=== PATIENT | female | born 1990 | race Caucasian/White ===

== ENCOUNTER 2021-03-03 09:09 | Emergency (ER) | payer OTHER, SELFPAY ==
[2021-03-03 09:22] VITALS: BP 131/68; PULSE 69; RESP 16; TEMP 36.3; O2SAT 99
--- NOTE | 2021-03-03 10:18 | ED.URI ---
HPI - URI/Sore Throat General Chief Complaint: Upper Respiratory Infection Stated Complaint: sore throat Time Seen by Provider: 03/03/21 10:18 Source: patient Mode of arrival: ambulatory Limitations: no limitations History of Present Illness HPI Narrative: Royer Mazariegos is a 31-year-old female who comes to [facility] with a sore throat that started on Sunday-states that her ears and throat hurt when ibuprofen wears off and has been taking [id number] Related Data Home Medications Medication Instructions Recorded Confirmed bupropion HCl 150 mg PO DAILY 03/03/21 03/03/21 cetirizine 10 mg PO DAILY 03/03/21 03/03/21 norethindrone (contraceptive) 0.35 mg PO DAILY 03/03/21 03/03/21 venlafaxine 75 mg PO DAILY 03/03/21 03/03/21 Allergies Allergy/AdvReac Type Severity Reaction Status Date / Time amoxicillin Allergy Unknown Other Verified 03/03/21 09:38 Penicillins Allergy Unknown Other Verified 03/03/21 09:38 Review of Systems Review of Systems: Narrative: CONSTITUTIONAL: Denies fever, chills, sweats. EYES: Denies visual changes, redness, discharge. ENT: Denies rhinorrhea, has congestion, has sore throat, bilateral otalgia. CARDIOVASCULAR: Denies chest pain, palpitations, edema. RESPIRATORY: Denies dyspnea, wheezing, cough GASTROINTESTINAL: Denies abdominal pain, nausea, vomiting, diarrhea. GENITOURINARY: Denies dysuria, hematuria, abnormal discharge SKIN: Denies rash or itching. NEUROLOGIC: Denies numbness, or focal weakness. PSYCHIATRIC: Denies anxiety or depression. PMFSH Past Medical History Medical History No acute medical problems Family History Family History Other Hypertension Social History Social History (Updated 03/03/21 @ 10:24 by Mary Ellen Summers CNP) Smoking status: Never smoker Alcohol intake: current Comments At time of signature, I agree with nursing past medical, surgical, social and family history. There is no relevant family history pertinent to the presenting complaint. Exam Narrative: Exam Narrative: GENERAL: This is a well-nourished, well-developed patient, in mild distress. HEAD: normocephalic, atraumatic. EYES: Sclera clear/white. Vision is grossly intact. EARS: External ears normal, auditory canals erythema and without drainage, TMs normal without perforation. Hearing grossly intact. NOSE: External nose normal without nasal discharge, nares without redness, no rhinorrhea. THROAT: Mucous membranes moist, posterior pharynx erythema NECK: Neck supple, non-tender CARDIOVASCULAR: Regular rate and rhythm without murmurs, gallops, or rubs. RESPIRATORY: Clear to auscultation. Breath sounds equal bilaterally. No wheezes, rales, or rhonchi. GASTROINTESTINAL: Abdomen soft, non-tender, SKIN: warm, intact with no suspicious lesions or rash, good texture and turgor. NEURO: awake, alert, and oriented to person, place and time. There were no obvious focal neurologic abnormalities. Steady gait EXTREMITIES: Normal range of motion. BACK: Nontender without deformity Course Course Emergency Course: Comes to [facility] with complaints of sore throat and bilateral ear pain and using ibuprofen [id number] Strep test negative Cefdinir 3 mg every 12 x10 days prednisone 40 mg x 5 days Vital Signs Vital signs: Vital Signs Temperature 97.3 F L 03/03/21 09:22 Pulse Rate 69 03/03/21 09:22 Respiratory Rate 16 03/03/21 09:22 Blood Pressure 131/68 03/03/21 09:22 Pulse Oximetry 99 03/03/21 09:22 Temperature 97.3 F L 03/03/21 09:22 Pulse Rate 69 03/03/21 09:22 Respiratory Rate 16 03/03/21 09:22 Blood Pressure 131/68 03/03/21 09:22 Pulse Oximetry 99 03/03/21 09:22 MDM - URI/Sore Throat Differential Diagnosis Differential diagnosis: Likely upper respiratory infection, otitis media, sinusitis, bronchitis, influenza and pharyngitis Lab Data Labs
== END 2021-03-03 10:30 | disposition home or self-care (01) ==
PROVIDERS: Emergency Provider Nurse Practitioner; PCP Physician Assistant
DX: J02.9 Acute pharyngitis, unspecified (principal); H66.003 Acute suppurative otitis media without spontaneous rupture of ear drum, bilateral; F41.9 Anxiety disorder, unspecified; F32.9 Major depressive disorder, single episode, unspecified
CPT/HCPCS: 87081; 87880; 99213; G0463

== ENCOUNTER 2023-07-13 08:52 | Emergency (ER) | payer OTHER, MEDICAID, SELFPAY ==
[2023-07-13 09:03] VITALS: BP 133/66; PULSE 107; RESP 16; TEMP 36.6; O2SAT 99
--- NOTE | 2023-07-13 09:11 | ED.URI ---
HPI - URI/Sore Throat General Chief Complaint: Upper Respiratory Infection Stated Complaint: Sore Throat/Heavy Chest/Ear Pain Time Seen by Provider: 07/13/23 09:05 Source: patient Mode of arrival: ambulatory Limitations: no limitations History of Present Illness HPI Narrative: Royer is a 33-year-old female patient presenting to the clinic today with complaints of a sore throat chest tightness, ear pain, sinus pressure, and nasal congestion. She reports symptoms have been going on for approximately 2 weeks. States she is 28 weeks . Has been taking Sudafed for symptoms and this has not helped very much. Is unable to get into her per biters office until next week. MD elicited complaint: cough, sore throat, nasal congestion and other (Chest tightness, ear pain, sinus pressure) Related Data Allergies Allergy/AdvReac Type Severity Reaction Status Date / Time amoxicillin Allergy Unknown Other Verified 07/13/23 09:14 Penicillins Allergy Unknown Other Verified 07/13/23 09:14 Review of Systems Review of Systems: Pertinent positives per HPI. Patient denies any fever, chills, rash, headache, visual changes, dizziness, shortness of breath, chest pain, palpitations, nausea, vomiting, diarrhea, constipation, abdominal pain, or any urinary issues. [facility] Past Medical History Medical History No acute medical problems Family History Family History Other Hypertension Social History Social History Smoking status: Never smoker Alcohol intake: current Comments At the time of my signature, I reviewed and agree with the nursing past medical, surgical, social, and family history. There is no relevant family history pertinent to the patient complaint. Exam Narrative: General: Well-developed, , in no apparent distress Head: Normocephalic, atraumatic Eyes: Pupils equally round and reactive to light bilaterally, EOM intact, sclera and conjunctive clear, no discharge, lids normal Ears: TMs intact and congested, ear canals clear, no drainage, grossly hearing normal. Nose: Nares patent, green nasal discharge, moderate inflammation, no sinus tenderness. Mouth: Oral pharynx without lesions or masses, good dentition, MMM. Postnasal drip Neck: Supple, trachea midline, no enlargement of anterior or posterior cervical nodes, no thyroid masses or goiter palpable. Cardio: Regular rate and rhythm, s1 and s2 normal, no murmur appreciated. Resp: Clear to auscultation bilaterally, no rhonchi, rales, wheezing or rubs Course Course Emergency Course: Portions of this record may have been created with voice recognition software. Level of Care: Express Care Visit Vital Signs Vital signs: Vital Signs Temperature 36.6 C 07/13/23 09:03 Pulse Rate 107 H 07/13/23 09:03 Respiratory Rate 16 07/13/23 09:03 Blood Pressure 133/66 07/13/23 09:03 Pulse Oximetry 99 07/13/23 09:03 Oxygen Delivery Room Air 07/13/23 09:03 Temperature 36.6 C 07/13/23 09:03 Pulse Rate 107 H 07/13/23 09:03 Respiratory Rate 16 07/13/23 09:03 Blood Pressure 133/66 07/13/23 09:03 Pulse Oximetry 99 07/13/23 09:03 Oxygen Delivery Room Air 07/13/23 09:03 Vital signs reviewed MDM - URI/Sore Throat MDM Narrative Medical decision making narrative: At the time of visit patient is resting comfortably on exam table. I suspect patient has acute bacterial rhinosinusitis. Patient is 28 weeks . Will send in prescription for cefdinir and she has a penicillin allergy. Supportive measures were discussed with the patient she voiced understanding discharge instructions and agrees to treatment plan. Return precautions were reviewed. Recommend follow-up with her PCP next week Differential Diagnosis Differential diagnosis: Likely upper respiratory
== END 2023-07-13 09:20 | disposition home or self-care (01) ==
PROVIDERS: Emergency Provider Nurse Practitioner Family
DX: O99.513 Diseases of the respiratory system complicating pregnancy, third trimester (principal); Z3A.28 28 weeks gestation of pregnancy; J01.90 Acute sinusitis, unspecified
CPT/HCPCS: 99213; G0463

== ENCOUNTER 2024-05-11 14:27 | Emergency (ER) | payer OTHER, MEDICAID, SELFPAY ==
[2024-05-11 14:34] VITALS: BP 135/85; PULSE 102; RESP 16; TEMP 36.6; O2SAT 100
--- NOTE | 2024-05-11 15:01 | ED.URI ---
HPI - URI/Sore Throat General Chief Complaint: Upper Respiratory Infection Stated Complaint: Chest Congestion/Ear Pain/Neck Pain Time Seen by Provider: 05/11/24 14:48 Source: patient Mode of arrival: ambulatory Limitations: no limitations History of Present Illness HPI Narrative: 34 year old female who presents to [facility] care with complaints of productive cough,, body aches,nasal sinus congestion with greenish yellow drainage with some ear pain for over one week duration. Patient reports that she initially had a sore throat which has resolved, reports some upper chest discomfort with cough.She has been taking Vicks cough and cold medication for her symptom, reports no known fevers, Patient denies any nausea or vomiting or diarrhea, she states that she has taken multiple home COVID tests which are negative. MD elicited complaint: sore throat, rhinorrhea, nasal congestion and other (Body aches) Onset (ago): week(s) (greater than 1 week) Pain scale (0-10): 5 Able to tolerate fluids by mouth: Yes Exacerbating factors: other (cough) Treatments prior to arrival: other (Vicks cold medication) Related Data Home Medications Medication Instructions Recorded Confirmed drospirenone (contraceptive) 4 mg 05/11/24 (28) tablet (Slynd) Allergies Allergy/AdvReac Type Severity Reaction Status Date / Time amoxicillin Allergy Unknown Hives Verified 05/11/24 14:47 Penicillins Allergy Unknown Hives Verified 05/11/24 14:47 Review of Systems Review of Systems: CONSTITUTIONAL: Reports malaise, no known chills, sweats, or fever. EYES: Denies visual changes, redness, or discharge. ENT: Reports rhinorrhea, congestion, sinus pain, otalgia and initial sore throat resolved CARDIOVASCULAR: Denies chest pain, palpitations, or edema. RESPIRATORY: Reports productive cough.? Denies dyspnea. GASTROINTESTINAL: Denies abdominal pain, nausea, vomiting, diarrhea SKIN: Denies rash or itching. MUSCULOSKELETAL: Denies myalgia. NEUROLOGIC: Denies headache. All systems reviewed & are unremarkable except as noted in HPI and below PMFSH Past Medical History Medical History No acute medical problems Surgical History Surgical History (Updated 05/12/24 @ 13:49 by Bozena Palmer NP) Previous section Family History Family History Other Hypertension Social History Social History (Updated 05/12/24 @ 13:50 by Bozena Palmer NP) Smoking status: Current every day smoker Tobacco type: e-cigarettes/vaping Alcohol intake: current Alcohol use details: social Substance use type: does not use Living arrangements: with family Gender identity (if verbalized by the patient): Female Comments At time of signature, agree with nursing past medical, surgical, social and family history. There is no relevant family history pertinent to the presenting complaint Exam Narrative: GENERAL: Well-appearing, well-nourished, and in no acute distress. HEAD: Normocephalic EYES: PERRLA, conjunctivae clear ENT: Nares clear, turbinates edematous and erythematous, yellow discharge. Mucous membranes moist. TM pearly hebert with dull light reflex bilaterally; no tragal tenderness. Oropharynx erythematous without lesions. Tonsils not enlarged and without exudate, no drooling, no hoarseness, no trismus, uvula midline.post nasal drainage NECK: Supple. No lymphadenopathy CHEST: Clear to auscultation, breath sounds equal. No wheezing, rhonchi, rales, or stridor. No respiratory distress, speaks in full sentences.productive cough greenish tingled phlegm, SAO2 100% on tachypnea or any retractions HEART: Regular rate and rhythm. No murmur heard. SKIN: Warm, dry, no rash. NEURO: Alert and oriented x3. PSYCH: Normal mood and affect Course Course Emergency Course: Patient is aware of diagnosis, understands and
[2024-05-12 14:29] LABS: EDINFLUASCREEN Negative (Negative); EDINFLUBSCREEN Negative (Negative)
== END 2024-05-11 15:23 | disposition home or self-care (01) ==
PROVIDERS: Emergency Provider Registered Nurse
DX: J06.9 Acute upper respiratory infection, unspecified (principal); R05.9 Cough, unspecified; F17.290 Nicotine dependence, other tobacco product, uncomplicated
CPT/HCPCS: 87804; 99213; G0463

== ENCOUNTER 2025-04-28 16:49 | Emergency (ER) | payer OTHER, MEDICAID, SELFPAY ==
--- OUTSIDE RECORDS SUMMARY | 2025-04-27 14:30 | XMS_ITS | Encounter Summary ---
Author Organization [facility] Healthcare Address [address] [place] [address] Care Team Providers Care Business Continuity Management Director Name Role Phone Lisha Arshad Primary Care Provider + Reason for Visit * Reason Comments PT Treatment * Consultation (Routine) - Authorized Specialty Diagnoses / Procedures Referred By Contparamjit t Referred To Contact Physical Therapy Diagnoses Cervicalgia Neck pain Lisha Arshad PA [address] [place] [address] Phone: tel: fax: [facility] [address] [place] [phone] Phone: tel: fax: Referral ID Status Reason Start Date Expiration Date Visits Requested Visits Authorized [id number] Authorized Evaluate and Treat 03/31/2025 04/30/2026 99 20 Encounter Details Date Type Department Care Team (Late st Contact Info) Description 04/27/2025 2:30 PM CDT Therapy [facility] [address] [place] [id number] Margot Manzano PTA Cervicalgia (Primary Dx) Social History Tobacco Use Types Packs/Day Years Used Date Smoking Tobacco: Never Smokeless Tobacco: Never Humiliation, Afraid, Rape, and Kick questionnair e Answer Date Recorded Within the last year, have y ou been afraid of your partner or ex-partner? No 03/27/2023 Within the last year, have y ou been humiliated or emotionally abused in other ways by your partner or ex-partner? No Within the last year, have y ou been kicked, hit, slapped, or otherwise physically hurt by your partner or ex-partner? No 03/27/2023 Within the last year, have y ou been raped or forced to have any kind of sexual activity by your partner or ex-partner? No 03/27/2023 Social Connection and Isolation Panel Answer Date Recorded In a typical week, how many times do you talk on the phone with family, friends, or neighbors? Once a week 09/21/2023 How often do you get together with friends or re latives? Once a week 09/21/2023 How often do you attend sabianism or yazidism serv ices? Never 09/21/2023 Do you belong to any clubs o r organizations such as sabianism groups, unions, fraternal or athletic groups, or school groups? No 09/21/2023 How often do you attend meet ings of the clubs or organizations you belong to? Never 09/21/2023 Are you , , di vorced, , never , or living with a partner? Never 09/21/2023 AUDIT-C Answer Date Recorded Q1: How often do you have a drink containing alcohol? Never 11/24/2024 Q2: How many drinks containi ng alcohol do you have on a typical day when you are drinking? Patient does not drink Q3: How often do you have si x or more drinks on one occasion? Never 11/24/2024 Overall Financial Resource Strain (CARDIA) Answe r Date Recorded How hard is it for you to pa y for the very basics like food, housing, medical care, and heating? Not very hard 09/21/2023 PHQ-2 Answer Date Recorded PHQ-2 Total Score 0 11/24/2024 [facility] [place] [facility] Occupat ional Health - Occupational Stress Questionnaire Answer Date Recorded Do you feel stress - tense, restless, nervous, or anxious, or unable to sleep at night because your mind is troubled all the time - these days? Only a little 09/21/2023 Exercise Vital Sign Answer Date Recorde d On average, how many days pe r week do you engage in moderate to strenuous exercise (like a brisk walk)? 7 days 09/21/2023 On average, how many minutes do you engage in exercise at this level? 10 min 09/21/2023 Hunger Vital Sign Answer Date Recorded Within the past 12 months, y ou worried that your food would run out before you got the money to buy more. Never true 09/21/19 24 Within the past 12 months, t he food you bought just didn't last and you didn't have money to get more. Never true 09/21/2023 PRAPARE - Transportation Answer Date Re corded In the past 12 months, has l ack of transportation kept you from medical appointments or from getting medications? No 04/2024 In the past 12 months, has l ack of transportation kept you from meetings, work, or from getting things needed for daily living? No 09/21/2023 Housing Stability Vital Sign Answer Panda e Recorded In the last 12 months, was t here a time when you were not able to pay the mortgage or rent on time? No 09/21/2023 In the last 12 months, how many places have you lived? 2 09/21/2023 In the last 12 months, was t here a time when you did not have a steady place to sleep or slept in a long term (including now)? No 09/21/2023 [place] Depression Scale Answer Date Recorded Jim [place] Depression Scale Total 13 02/13/2024 The thought of harming myself has occurred to me . Never 02/13/2024 Personal Safety Answer Date Recorded Have you ever been in or are you currently in a harmful physical or emotional relationship or is someone making you feel afraid or unsafe? 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 States the tape was itching real bad and then she removed due to the itching and burning. States she did feel better with the tape on though. States she does have headache right now. Pain: 5-6/10 neck with R > Left side Objective :see treatment well Established plan from initial evaluation Pt requires verbal and tactile cue to perform proper technique with exercises Postural cues needed t/o treatment Palpation: moderate tightness noted on R UT. Applied gentle Ktape due to irritation of skin-instructed pt to remove if she begins feeling Itchy again. Treatment Provided: MHP to B shoulders/neck MFR to cervical spine, occipital release, B UT B Shoulder retraction w/yellow band x 10 B shoulder ext w/yellow band x 10 B shoulder horizontal abd w/yellow band x 10 At wall V slides with lift off x 8 Ktape-gentle- 2 I strips one along R UT and 1 vertical from anterior to posteror HEP Access Code: [email or web address] URL: [email or web address] Exercises - Cervical Extension AROM with Strap - 2 x daily - 7 x weekly - 1 sets - 10 reps - 10-15seconds hold - Seated Shoulder Horizontal Abduction with Resistance - 2 x daily - 7 x weekly - 1 sets - 10-15 reps - 3seconds hold - Seated Scapular Retraction - 2 x daily - 7 x weekly - 1 sets - 20 reps - 3seconds hold The pt does have a 1 year old that she picks up at times and tends to carry on her right hip. Did discuss with pt that this could be contributing to her problem. Instructed her to try to carry her child on her left hip instead. Assessment: Pt tolerates well for treatment. Issued yellow band for HEP. Plan:cont per POC. Start Time: 1430 End Time:1515 Margot Manzano PTA documented in this encounter Plan of Treatment Not on file documented as of this encounter Visit Diagnoses Diagnosis Cervicalgia- Primary documented in this encounter Care Teams Business Continuity Management Director Relationship Specialty Start Date End Date Lisha Arshad PA PCP - General Physician Partition Assembly Machine Operator 01/30/23 documented as of this encounter
--- OUTSIDE RECORDS SUMMARY | 2025-04-28 16:57 | XMS_ITS | Clinical Summary ---
Author Organization [facility] Address [address] [place] [address] Care Team Providers Care Spiral Winding Machine Helper Name Role Phone Lisha Arshad PA-C Primary Care Provider Source Comments [facility], [facility],non-owned Affiliates and Associated Physician Practices is amultiple site organization consisting of ambulatory clinics and hospital sitesin [place], [place], [place] and [place]. This disclosure is being madepursuant to the Care Everywhere program and may not contain all information available regarding this patient. Last updated 18.[facility] Allergies Active Allergy Reactions Criticality Noted Date Comments Amoxicillin Urticaria Medium 08/25/2017 Penicillins Urticaria Medium 08/25/2017 Medications * Be aware that medications may not be up to date on this document. Alwaysverify current medications with the patient. venlafaxine (EFFEXOR) 37.5 MG tablet Take 37.5 mg by mouth 3 times daily with meals Active NORETHINDRONE PO Act lara Social History Tobacco Use Types Packs/Day Years Used Date Smoking Tobacco: Never Smokeless Tobacco: Never Comments No Sex and Gender Information Value Date Recorded Sex Assigned at Not on file Legal Sex Female 8:45 AM PRESS SHOP SUPERVISOR Gender Identity Not on file Sexual Orientation Not on file Last Filed Vital Signs Vital Sign Reading Time Taken Comments Blood Pressure 102/66 07/06/2021 9:24 AM PRESS SHOP SUPERVISOR Pulse 71 07/06/2021 9:24 AM PRESS SHOP SUPERVISOR Temperature 37 C (98.6 F) 07/06/2021 9:24 AM PRESS SHOP SUPERVISOR Respiratory Rate 16 07/06/2021 9:24 AM PRESS SHOP SUPERVISOR Oxygen Saturation 98% 07/06/2021 9:24 AM PRESS SHOP SUPERVISOR Inhaled Oxygen Concentration - - Weight 90.7 kg (200 lb) 08/25/2017 10:17 AM PRESS SHOP SUPERVISOR Height 157.5 cm (5' 2) 08/25/2017 10:17 AM PRESS SHOP SUPERVISOR Body Mass Index 36.58 08/25/2017 10:17 AM PRESS SHOP SUPERVISOR Plan of Treatment Health Maintenance Due Date Last Done Comments HIV SCREENING 01/12/2007 HEPATITIS C SCREENING 01/08/2010 DTAP/TDAP/TD VACCINES (1 - Tdap) 01/12/2011 HEPATITIS B VACCINE (1 of 3 - 19+ 3-dose series) 01/12/2011 HPV VACCINE (1 - 3-dose SCDM series) 01/12/2019 DEPRESSION SCREENING 08/13/2024 COVID-19 VACCINE (3 - 2024-2 6 season) 2025 03/18/2021, 02/16/2021 INFLUENZA VACCINE (#1) 2025 07/01/2018 ZOSTER VACCINE (1 of 2) 01/12/2042 HIB VACCINE Aged Out No longer eligi ble based on patient's age to complete this topic MENINGOCOCCAL (Group B) VACCINE SHARED DECISION-MAKING Aged Out No longer eligible based on patient's age to complete this topic MENINGOCOCCAL GROUPS A/C/Y/W VACCINE Aged Out No longer eligible b ased on patient's age to complete this topic PNEUMOCOCCAL VACCINE Aged Out No long er eligible based on patient's age to complete this topic Insurance Care Teams Spiral Winding Machine Helper Relationship Specialty Start Date End Date Lisha Arshad PA-C [address] [place] [phone] PCP - General Physician Project Manager Retail 07/06/21
--- OUTSIDE RECORDS SUMMARY | 2025-04-28 16:57 | XMS_ITS | Clinical Summary ---
Author Organization [facility] Office Building [address] Address [address] [place] [address] Care Team Providers Care Herb Doctor Name Role Phone Lisha Arshad Primary Care Provider + Allergies Active Allergy Reactions Criticality Noted Date Comments Penicillins Hives,Unknown,Urticaria Medium 08/25/2017 Medications acetaminophen (TYLENOL) 325 mg tablet Take 2 tablets (650 mg total) by mouth every 6 (six) hours as needed for pain Active vit 56-vctq-sxnqe-d carter 27mg iron- 800 mcg-250 mg capsule Take by mouth Active varicella zoster (VARIVAX) 1,350 unit/0.5 mL vaccineIndicati ons:varicella prevention Please administer 0.5 ml injection once to patient 0.5 mL 4 Active Additional Information Patient not taking.Reported on 01/12/2025 prochlorperazin e (COMPAZINE) 5 mg tabletIndicatio ns:Unilateral headache,Nausea and vomiting, unspecified vomiting type Take 1 tablet (5 mg total) by mouth every 8 (eight) hours as needed for nausea (And headache) Collaborating physician Shaun Deng MD 20 tablet 5 Active naproxen (NAPROSYN) 500 mg tabletIndicatio ns:Unilateral headache Take 1 tablet (500 mg total) by mouth 2 (two) times a day with meals P.r.n. pain and headache. Collaborating physician Shaun Deng MD 20 tablet 5 Active butalbital-acet aminophen-caffe ine (ESGIC) 50-325-40 mg per tabletIndicatio ns:Unilateral headache Take 1 tablet by mouth every 6 (six) hours as needed for headaches P.r.n. headache not relieved by naproxen alone. Take with food. Collaborating physician Shaun Deng MD 10 tablet 5 Active sertraline (ZOLOFT) 100 mg tablet Take 1 tablet (100 mg total) by mouth daily for 90 days 5 Active drospirenone, contraceptive, (Slynd) tablet tablet Take 1 tablet by mouth once daily 28 tablet 3 5 Active Active Problems Problem Noted Date Diagnosed Date Well woman exam 11/24/2024 Overview (11/24/2024): Paps - remote h/o abnl Labs with pcp Linda- Colonoscopy- BMD Gardasil- did not get. Assessment & Plan (01/12/2025 4:17 PM CDT): Due in December 06 Vaginal discharge 11/24/2024 Assessment & Plan (11/24/2024 11:52 AM CDT): Occupational Health Physiotherapist done Tobacco use 11/24/2024 Assessment & Plan (01/12/2025 4:17 PM CDT): The patient was encouraged to stop smoking. Techniques for smoking cessation were discussed to the patient's level of interest. Assessment & Plan (11/24/2024 11:40 AM CDT): The patient was encouraged to stop smoking. Techniques for smoking cessation were discussed to the patient's level of interest. DUB (dysfunctional uterine bleeding) 11/24/2024 Assessment & Plan (01/12/2025 4:19 PM CDT): Usg reviewed Options discussed. TSH and iron done at pcp and was fine. Will repeat usg in Mar They will decide if they want to see how she does off ocp and use other protection or not. Assessment & Plan (11/24/2024 11:54 AM CDT): New problem: Etiologies discussed. Thyroid was normal To usg She was not anemic in 08/2024 Unilateral headache 09/02/2024 Hyperglycemia 09/02/2024 Generalized anxiety disorder 11/13/2023 Assessment & Plan (04/21/2024 10:36 AM CDT): She wants to wait and see how she does Getting outside encouraged Healthy diet encourage. Adequate sleep encouraged Assessment & Plan (02/13/2024 3:42 PM CDT): Will go back down to 10mg If she goes back to being anxious, will change. 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 Encounter for maternal care for scar from repeat delivery 09/21/2023 11/13/2023 Previous section 09/12/2023 Sterilization 09/12/2023 09/20/2023 Overview (09/20/2023): She does not want btl now Sterilization 09/12/2023 09/21/2023 COVID-19 affecting in second trimester 04/20/2023 02/13/2024 Rh negative status during pr egnancy in first trimester 04/02/2023 10/08/2023 Maternal varicella, non-immune 04/02/2023 11/24/2024 Overview (04/02/2023): 04/02/23- will plan to vaccinate pp Assessment & Plan (04/21/2024 10:39 AM CDT): Will vaccinate today Assessment & Plan (02/13/2024 3:43 PM CDT): She is still planning on coming to [facility] for wwe to get Assessment & Plan (11/13/2023 3:24 PM CDT): She will come to [facility] to get vaccinated. Assessment & Plan (10/08/2023 3:22 PM TILE LAYER HELPER): She declined in the hospital. She doesn't think she will get. Thrombocytopenia 04/02/2023 04/21/2024 Overview (07/18/2023): 04/02/23- 125 04/03/23- 102, 04/05/23- UBALDO negative. 04/27/23-173 05/15/23- 153 06/18/23- 136 07/18/23- 149 Assessment & Plan (02/13/2024 3:43 PM CDT): Resolved. Assessment & Plan (11/13/2023 3:25 PM CDT): To cbc Encounter for supervision of normal in first trimester 03/27/2023 10/08/2023 Overview (04/10/2023): 04/10/23- cell free dna testing and carrier screening negative. Assessment & Plan (03/27/2023 1:31 PM CDT): No scale at home To pepcid If no better to call by Sunday. Rto 1 week for weight check and ketones. I suspect her cramping is related to growing. Will follow H/O section 03/27/2023 024 Overview (03/27/2023): X2 will plan for repeat at term Assessment & Plan (03/27/2023 11:07 AM CDT): Will plan for repeat at term She may want btl . Encounters Date Type Department Care Team Description 04/27/2025 2:30 PM CDT Therapy [facility] [address] [place] [address] Margot Manzano, INTERMODAL TRUCK DRIVER Cervicalgia (Primary Dx) 04/24/2025 Plan of Care Documentation [facility] [address] [place] [address] 04/23/2025 1:45 PM CDT Therapy [facility] [address] [place] [address] Carla Franklin, PT Cervicalgia (Primary Dx) 04/20/2025 Telephone [place] [facility] [address] [facility] [address] [place] [phone] Clara Garza 03/23/2025 12:56 PM CDT - 03/23/2025 11:59 PM CDT Hospital Encounter [facility] [address] [place] [address] Cervicalgia Discharge Disposition: Discharge to home or self care 02/18/2025 [place] [address] [place] [phone] Paola Alvarez, CHELI MCGRATH from Last 3 Months Immunizations Immunization Administration Dates Next Due Influenza, Unspecified 09/20/2023(Deferr ed: Patient Refused),06/05/2023(Deferred: Patient Refused) Tdap 07/31/2023 Varicella 09/23/2023(Deferred: Patient Ref used) Surgical History Surgery Date Site/Laterality Comments SECTION x2 Medical History Medical History Date Comments Migraine Family History Medical History Relation Name Comments Hyperlipidemia Father Hypertension Father Heart disease Paternal Grandmother Breast cancer Paternal Great-Grandmother 40s Cancer Neg Hx No colon or time broker cmt no change cmt 11/24/24 Relation Name Status Comments Father Paternal Grandmother Paternal Great-Grandmother Alive Social History Tobacco Use Types Packs/Day Years Used Date Smoking Tobacco: Never Smokeless Tobacco: Never Tobacco Cessation:Counseling Given: Not Answered Humiliation, Afraid, Rape, and Kick questionnair e [...] week 09/21/2023 How often do you attend caodaism or pentecostal serv ices? Never 09/21/2023 Do you belong to any clubs o r organizations such as caodaism groups, unions, fraternal or athletic groups, or [...] Date Recorded PHQ-2 Total Score 0 11/24/2024 [facility] of Occupat ional Health - Occupational Stress [...] place to sleep or slept in a custodial (including now)? No 09/21/2023 Tate Depression Scale Answer Date Recorded Tate Depression Scale Total 13 02/13/2024 The thought [...] on file Legal Sex Female 9:51 AM TILE LAYER HELPER Gender Identity Not on file Sexual Orientation Not on file Obstetrics History Para Term AB IAB SAB Ectopic Multiple Livin g Live Births 3 3 3 0 3 3 Date Outcome GA Total Labor Labor/2nd/3rd Weight Sex Type Anes PTL Alison A1 A5 Name Clin 2011 Term 40w 0d 3.175 kg (7 lb) M CS-LT ranv Epidur al Livin g Complications:Cord entanglem ent 2017 Term 38w 0d 3.175 kg (7 lb) M CS-LT ranv Epidur al Livin g Complications:None 2023 Term 38w 0d 0h 04m 0h 04m 3.16 kg (6 lb 15.5 oz) M C-Sec tion Spinal N Livin g 8 8 Cedric Abad MD Complications:None Delivery Location:This Facil ity ([facility] L AND D PROCEDURE) Comments First c/s was emergency for NRFHT Second was repeat She may want to have BTL No htn or DM. Had weekly NSTs with #1, but doesn't remember why. Last Filed Vital Signs Vital Sign Reading Time Taken Comments Blood Pressure 116/66 01/12/2025 4:03 PM CDT Pulse 83 09/02/2024 10:09 AM TILE LAYER HELPER Temperature 36.6 C (97.8 F) 09/02/2024 10:09 AM TILE LAYER HELPER Respiratory Rate 18 09/02/2024 10:09 AM TILE LAYER HELPER Oxygen Saturation 100% 09/02/2024 10:09 AM TILE LAYER HELPER Inhaled Oxygen Concentration - - Weight 89.4 kg (197 lb) 01/12/2025 4:03 PM CDT Height 157.5 cm (5' 2) 01/12/2025 4:03 PM CDT Body Mass Index 36.03 01/12/2025 4:03 PM CDT Plan of Treatment Health Maintenance Due Date Last Done Comments Varicella Vaccines (1 of 2 - 13+ 2-dose series) 01/12/2005 Hepatitis B Screening 01/12/2010 HPV Vaccines (1 - 3-dose SCDM series) 01/12/2019 Covid-19 Vaccine ( season) 2025 03/18/2021, 02/16/2021 Influenza Vaccine (#1) 2025 07/01/2018 Cervical Cancer Screening 11/24/2025 11/24/2024, Depression Screening 11/24/2025 11/24/2024, 04/21/2024, 02/13/2024, Additional history exists Regular Well Visit/Exam 18-64 11/24/2025 11/24/2024 DTaP/Tdap/Td Vaccine (2 - Td or Tdap) 07/31/2033 07/31/2023 Hepatitis C Screening Completed 07/17/2023, 023 Pneumococcal vaccine <65 Aged Out No longer eligible based on patient's age to complete this topic Procedures Procedure Name Priority Date/Time Associated Diagnosis Comments XR SPINE CERVICAL 2 OR 3 VIEWS Schedule Routine, Read Routine (OP Routine) 03/23/2025 1:44 PM CDT Cervicalgia PAP AND HPV, REFLEX TO HPV GENOTYPES Routine 11/24/2024 11:54 AM CDT Well woman exam HEPATITIS C ANTIBODY Routine 07/17/2023 10:46 AM TILE LAYER HELPER Encounter for supervision of other normal in second trimester 25 weeks gestation of from Last 3 Months or Most Recently Relevant to Health Maintenance Results * XR Spine Cervical 2 or 3 Views (03/23/2025 1:44 PM CDT) Anatomical Region Laterality Modality Spine N/A Computed Radiogr aphy 03/30/2025 11:0 5 AM CDT Narrative 03/30/2025 11:06 AM CDT EXAM DESCRIPTION: 1. XR SPINE CERVICAL 2 OR 3 VIEWS REASON FOR STUDY: NECK PAIN ; CERVICALGIA Pain to right side neck for 2 weeks that radiates to elbow No injury or surgery FINDINGS: Two views submitted without comparison. No acute fracture. No prevertebral soft tissue swelling. Mild anterolisthesis of C4 on C5 and retrolisthesis of C5 on C6. Flie-xi-oouumbwg C5-C6 degenerative disc disease. IMPRESSION: 1. Bxcj-rm-arwqrziz C5-C6 degenerative disc disease with degenerative retrolisthesis. THIS IS AN ELECTRONICALLY VERIFIED FINAL REPORT 03/30/2025 11:06 AM - Electronically signed by Jun Arnold M.D. MF: [email or web address] Report ID: [id number] Reading Location: [id number] Procedure Note Jun Arnold MD - 03/30/2025 EXAM DESCRIPTION: 1. XR SPINE CERVICAL 2 OR 3 VIEWS REASON FOR STUDY: NECK PAIN ; CERVICALGIA Pain to right side neck for 2 weeks that radiates to elbow No injury or surgery FINDINGS: Two views submitted without comparison. No acute fracture. No prevertebral soft tissue swelling. Mild anterolisthesis of C4 on C5 and retrolisthesis of C5 on C6.Vimu-cy-sxdfuxqr C5-C6 degenerative disc disease. IMPRESSION: 1. Azim-rk-lzqwdjrf C5-C6 degenerative disc disease with degenerative retrolisthesis. THIS IS AN ELECTRONICALLY VERIFIED FINAL REPORT 03/30/2025 11:06 AM - Electronically signed by Jun Arnold M.D. MF: [email or web address] Report ID: [id number] Reading Location: [place] [address] Lisha MCGRATH IMG XR PROCEDURES Final Result * Pap and HPV, reflex to HPV Genotypes (11/24/2024 11:54 AM CDT) Clinical indication Comment [facility] - 01 Comment:NEGATIVE FOR INTRAEP ITHELIAL LESION OR MALIGNANCY. Specimen adequacy: Comment [facility] - 01 Comment: Satisfactory for evaluation. Endocervical and/or squamous metaplastic cells (endocervical component) are present. Clinician provided ICD10 Comment [facility] - 01 Comment:Z01.419 Performed by Comment [facility] - 01 Comment:Marguerite Ivy, Cyto technologist (ASCP) . . [facility] - 01 Note: Comment [facility] - 01 Comment: The Pap smear is a screening test designed to aid in the detection of premalignant and malignant conditions of the uterine cervix. It is not a diagnostic procedure and should not be used as the sole means of detecting cervical cancer. Both false-positive and false-negative reports do occur. Test methodology Comment [facility] - 01 Comment: This liquid based ThinPrep(R) pap test was screened with the use of an image guided system. HPV Aptima Negative Negative [facility] 02 Comment: This nucleic acid amplification test detects fourteen high-risk HPV types (16,18,31,33,35,39,45,51,52,56,58,59,66,68) without differentiation. HPV Genotype Reflex Comment [facility] - 01 Comment:Criteria not met, HP V Genotype not performed. Thin prep-Endocervical 11/24/2024 11:54 AM CDT 11/24/2024 Narrative [facility] - 11/27/2024 5:09 PM CDT Performed at: 01 - [facility] [id number] Magistrate: Yolanda Hagan MD, Phone: [phone] Performed at: 02 - [facility] [id number] Magistrate: Yolanda Hagan MD, Phone: [phone] Specimen Comment: [id number] Specimen Comment: No. of containers..01 ThinPrep Vial us Elissa Hunter MD LAB CYTOLOGY ORDERA BLES Final Result Performing Organization Address [facility] Co de Phone Number [facility] - 01 [facility] 02 * Hepatitis C antibody Blood (07/17/2023 10:46 AM TILE LAYER HELPER) Hep C Ab Nonreactive Nonreactive [facility] (SHANON) Comment: Interpretive Data Nonreactive: Antibodies to HCV not detected. Does NOT exclude the possibility of recent exposure to HCV. Equivocal: Equivocal for HCV antibodies. Supplemental molecular testing will be automatically performed to determine infection status in accordance with current CDC screening recommendations. Reactive: Positive for HCV antibodies. This may represent current or past HCV infection. Supplemental molecular testing will be automatically performed to determine current infection status in accordance with current CDC screening recommendations. Interpretive data was last revised on 2019. Testing performed by: [facility], [address] [place] [address], [place]., [address] Blood 07/17/2023 10:4 6 AM TILE LAYER HELPER 07/17/2023 3:45 PM TILE LAYER HELPER Elissa Hunter MD LAB MICROBI OLOGY - GENERAL ORDERABLES Edited Result - Final Performing Organization Address [facility] Co de Phone Number [facility]HO[facility] LESTER (SHANON) [address] Department [place] [address] from Last 3 Months or Most Recently Relevant to Health Maintenance Insurance [facility] [employer] [facility] IDPA [facility] IDPA IDPA [facility] Advance Directives For more information, please contact: [phone] * Full Code (Latest Code Status on File) Date Activated Date Inactivated Comments 09/21/2023 10:01 AM 09/23/2023 2:44 PM * Full Code Date Activated Date Inactivated Comments 09/21/2023 5:29 AM 09/21/2023 10:01 AM Full CPR in c ase of cardiopulmonary arrest Care Teams Herb Doctor Relationship Specialty Start Date End Date Lisha Arshad PA PCP - General Physician Scientific Investigator 01/30/23
[2025-04-28 16:58] VITALS: BP 131/83; PULSE 96; RESP 20; TEMP 36.9; O2SAT 100
--- NOTE | 2025-04-28 17:30 | ED_ITS ---
HPI - URI/Sore Throat General Chief Complaint: Upper Respiratory Infection Stated Complaint: throat/ulcer on tonsil Time Seen by Provider: 04/28/25 17:18 Source: patient, RN notes reviewed and old records reviewed Mode of arrival: ambulatory Limitations: no limitations History of Present Illness HPI Narrative: 35-year-old female who presents to [facility] with complaints sore throat since this morning and right ear pain. Patient denies any known fevers chills or sweats. She states she has been taking ibuprofen for her discomfort. She states she noted some white spots on her tonsils this morning. Patient reports that she has been taking Ibuprofen for herdiscomfort. MD elicited complaint: cough and sore throat Onset (ago): day(s) (This a.m.) Pain scale (0-10): 6 Able to tolerate fluids by mouth: Yes Treatments prior to arrival: ibuprofen Related Data Home Medications ?Medication ?Instructions ?Recorded ?Confirmed ?Last Taken ?Type drospirenone (contraceptive) 4 mg 05/11/24 Unknown H istory (28) tablet (Slynd) sertraline 100 mg tablet mg 04/28/25 Unknown History Allergies Allergy/AdvReac Type Severity Reaction Status Date / Time amoxicillin Allergy Unknown Hives Verified 04/28/25 17:05 Penicillins Allergy Unknown Hives Verified 04/28/25 17:05 Review of Systems Review of Systems: CONSTITUTIONAL: Reports malaise, no chills, sweats, or fever. EYES: Denies visual changes, redness, or discharge. ENT: Reports rhinorrhea, congestion,no sinus pain, right otalgia and sore throat. CARDIOVASCULAR: Denies chest pain, palpitations, or edema. RESPIRATORY: Reports no acute cough.? Denies dyspnea. GASTROINTESTINAL: Denies abdominal pain, nausea, vomiting, diarrhea SKIN: Denies rash or itching. MUSCULOSKELETAL: Denies myalgia. NEUROLOGIC: Denies headache. All systems reviewed & are unremarkable except as noted in HPI and below PMFSH Past Medical History Medical History Anxiety and depression Surgical History Surgical History Previous section x3 Family History Family History Other Hypertension Social History Social History Smoking status: Current every day smoker Tobacco type: e-cigarettes/vaping Alcohol intake: current Alcohol use details: social Substance use type: does not use Living arrangements: with family Gender identity (if verbalized by the patient): Female Comments At time of signature, agree with nursing past medical, surgical, social and family history. There is no relevant family history pertinent to the presenting complaint Exam Narrative: GENERAL: Well-appearing, well-nourished, and in no acute distress. HEAD: Normocephalic EYES: PERRLA, conjunctivae clear ENT: Nares clear, turbinates edematous and erythematous, clear discharge. Mucous membranes moist. TM pearly hebert with dull light reflex bilaterally; no tragal tenderness. Oropharynx erythematous without lesions. Tonsils red enlarged and with white exudates, no drooling, no hoarseness, no trismus, uvula midline.some post nasal drainage. NECK: Supple. positive for lymphadenopathy CHEST: Clear to auscultation, breath sounds equal. No wheezing, rhonchi, rales, or stridor. No respiratory distress, speaks in full sentences.SAO2 100% on room air HEART: Regular rate and rhythm. No murmur heard. SKIN: Warm, dry, no rash. NEURO: Alert and oriented x3. PSYCH: Normal mood and affect Course Course Emergency Course: Patient is aware of diagnosis, understands and agrees to treatment plan.? Anticipatory guidance given.? Patient agrees to follow-up as directed and is aware of reasons to seek care at the emergency department. Portions of this record may have been created with voice recognition software Level of Care: Express Care Visit Vital Signs Vital signs: Vital Signs Temperature 36.9 C 04/28/25 16:58 Pulse Rate 96 04/28/25 16:58 Respiratory Rate 20 04/28/25 16:58 Blood Pressure 131/83 04/28/25 16:58 Pulse Oximetry 100 04/28/25 16:58 Oxygen Delivery Room Air 04/28/25 16:58 Temperature 36.9 C 04/28/25 16:58 Pulse Rate 96 04/28/25 16:58 Respiratory Rate 20 04/28/25 16:58 Blood Pressure 131/83 04/28/25 16:58 Pulse Oximetry 100 04/28/25 16:58 Oxygen Delivery Room Air 04/28/25 16:58 Reviewed MDM - URI/Sore Throat MDM Narrative Medical decision making narrative: Differential diagnosis considered: Wilkinson virus, strep pharyngitis, allergic rhinitis, upper respiratory tract infection, sinusitis, rhinosinusitis, nasopharyngitis. viral pharyngitis, otitis media, otitis externa, pneumonia, bronchitis, viral cough syndrome, viral syndrome, and influenza.? Exam findings show no acute concerns or changes; patient is non-toxic appearing and is in no distress.? Patient is appropriate for outpatient treatment and follow-up. Differential Diagnosis Differential diagnosis: Likely upper respiratory infection, viral infection, pharyngitis and other (strep pharyngitis) Medical Records Attestation: I reviewed the patient's medical records. Lab Data Attestation: I reviewed the patient's lab results. Lab results narrative: strep screen positive Labs: Lab Results 04/28/25 Range/Units 16:55 POC Grp A Strep Screen Positive (Negative) Critical Care Time Critical Care Time Critical Care Time: No Discharge Plan Discharge Clinical Impression: Acute streptococcal pharyngitis Patient Disposition: Home Condition: Stable Instructions: Antibiotic Form, Strep Throat (ED) Additional Instructions: You tested positive for Group A strep . Take the entire course of antibiotics. Throw away your current toothbrush and begin using a new toothbrush in 48 hours in order to prevent re-infection. Sanitize all reusable water bottles . Do not share items with others. Salt water gargles may alleviate some of the throat discomfort. You can take Tylenol or ibuprofen per the package instructions for pain/fever. If your symptoms persist, change or worsen significantly before you can contact your personal physician then please, without delay, go to the emergency department for further evaluation. Follow-up with PCP in 7-10 days or sooner if needed Follow up with PCP soon in regards to your blood pressure which is elevated above threshold for referral. Blood pressure above 120/80 may indicate pre- hypertension. 131/83 Patient Language: Bulgarian Prescriptions: New cefdinir 300 mg capsule 300 mg PO Q12H 10 Days Qty: 20 0RF Rx Instructions: for 10 days has had prior therapy without any reaction No Action Slynd 4 mg (28) tablet sertraline 100 mg tablet Follow-up/Referrals: PHYSICIAN,[facility] [Primary Care Provider, Internal Medicine] Time of Disposition: 17:35 Quality [place] Coma Scale Eyes: Open Verbal: Oriented and Alert Motor: Follows Commands [place] Coma Total Score: 15
[2025-04-28 17:39] LABS: EDSTREPNEGPOS1 Positive (Negative)
== END 2025-04-28 17:38 | disposition home or self-care (01) ==
PROVIDERS: Emergency Provider Registered Nurse
DX: J02.0 Streptococcal pharyngitis (principal); F17.290 Nicotine dependence, other tobacco product, uncomplicated; F41.9 Anxiety disorder, unspecified; F32.A Depression, unspecified
CPT/HCPCS: 87880; 99213; G0463